=== PATIENT | female | born 1990 | race Caucasian/White ===

== ENCOUNTER 2017-01-24 08:13 | Emergency (ER) | payer SELFPAY ==
[~2017-01-24] VITALS: Ht 152.4 cm; Wt 60.0 kg
[~2017-01-24 08:13] MED LIST: RANI150 PO; ZOFR4TAB3 SL; ZYRT10TA12 PO
[2017-01-24 08:15] VITALS: BP 131/60; PULSE 60; RESP 16; TEMP 98.4; O2SAT 98
[2017-01-24] MEDS ORDERED: SODIUM CHLOR 0.9% 1000 ML INJ 1,000 ML IV SCH (08:33)
--- NOTE | 2017-01-24 08:37 | PD ---
HPI Chief Complaint: Flank/Kidney Pain Time Seen by Provider: 08:33 Travel History International Travel<30 days: No Contact w/Intl Traveler<30days: No Traveled to known affect area: No History of Present Illness HPI 26-year-old female with history of no significant past medical issues, presents to the ER today with bilateral flank and back pains that started on its own. She does not know injuries. She states is currently a 10 out of 10 starting last night. She has had some similar issues in the past although not quite as severe according to patient's . She denies any nausea, vomiting, urinary symptoms, fevers, incontinence, numbness or weakness in the legs, abdominal pains, or any other symptoms. She states that sometimes it hurts when she moves or takes too deep breath. Modifying Factors: None Associated Signs & Symptoms: Bilateral flank and back pain Risk Factors: None PFSH Past Medical History Medical History: Denies Significant Hx Asthma: Yes Autoimmune Disease: No Anxiety: No Depression: No Cardiovascular Problems: No Diminished Hearing: Yes (RIGHT EAR) Gastrointestinal Disorders: Yes Genitourinary: No Musculoskeletal: No Neurologic: No Psychiatric: No Respiratory: Yes (CHRONIC BRONCHITITS) Immunizations Current: Yes ?: Not LMP: 12/30 Menopausal: No : 0 Past Surgical History Surgical History: No Previous Surgery Other Surgery: No Social History Alcohol Use: No Tobacco Use: No Substance Use: No Allergies-Medications (Allergen,Severity, Reaction): Coded Allergies: No Known Allergies (Verified , 04/20/15) Reported Meds & Prescriptions Reported Meds & Active Scripts Active No Active Prescriptions or Reported Medications Review of Systems Except as stated in HPI: all other systems reviewed are Neg Physical Exam Narrative GENERAL: Well-developed young female patient currently in mild distress. Awake and oriented 3. SKIN: Focused skin assessment warm/dry. HEAD: Atraumatic. Normocephalic. EYES: Pupils equal and round. No scleral icterus. No injection or drainage. ENT: No nasal bleeding or discharge. Mucous membranes pink and moist. NECK: Trachea midline. No JVD. CARDIOVASCULAR: Regular rate and rhythm. No murmur appreciated. RESPIRATORY: No accessory muscle use. Clear to auscultation. Breath sounds equal bilaterally. GASTROINTESTINAL: Abdomen soft, non-tender, nondistended. Hepatic and splenic margins not palpable. BACK: No CVA tenderness. No rash. No point tenderness on palpation of the spine. Mild paraspinal tenderness around the upper lumbar region with no obvious fluctuance. MUSCULOSKELETAL: No obvious deformities. No clubbing. No cyanosis. No edema. NEUROLOGICAL: Awake and alert. No obvious cranial nerve deficits. Motor grossly within normal limits. Normal speech. PSYCHIATRIC: Appropriate mood and affect; insight and judgment normal. Data Data Last Documented VS Vital Signs Date Time Temp Pulse Resp B/P Pulse Ox O2 Delivery O2 Flow Rate FiO2 01/24/17 08:47 100 Room Air 01/24/17 08:26 16 01/24/17 08:15 98.4 60 131/60 Orders Complete Blood Count With Diff (01/24/17 08:33) Comprehensive Metabolic Panel (01/24/17 08:33) Lipase (01/24/17 08:33) Urinalysis - C+S If Indicated (01/24/17 08:33) Ct Abd/Pel W/O Iv Contrast (01/24/17 08:33) Iv Access Insert/Monitor (01/24/17 08:33) Ecg Monitoring (01/24/17 08:33) Oximetry (01/24/17 08:33) Sodium Chlor 0.9% 1000 Ml Inj (Ns 1000 M (01/24/17 08:33) Sodium Chloride 0.9% Flush (Ns Flush) (01/24/17 08:45) Ketorolac Inj (Toradol Inj) (01/24/17 08:45) Ed Urine Pregnancytest Poc (01/24/17 08:33) Ct Thor Spine W/O Contrast (01/24/17 08:33) Ct Lumb Spine W/O Contrast (01/24/17 08:33) Labs Laboratory Tests Test 01/24/17 08:45 White Blood Count 7.1 TH/MM3 Red Blood Count 4.95 MIL/MM3 Hemoglobin 14.5 GM/DL Hematocrit 42.6 % Mean Corpuscular Volume 86.1 FL Mean Corpuscular Hemoglobin 29.2 PG Mean Corpuscular Hemoglobin 33.9 % Concent Red Cell Distribution Width 13.0 % Platelet Count 232 TH/MM3 Mean Platelet Volume 8.0 FL Neutrophils (%) (Auto) 61.0 % Lymphocytes (%) (Auto) 27.3 % Monocytes (%) (Auto) 7.7 % Eosinophils (%) (Auto) 3.4 % Basophils (%) (Auto) 0.6 % Neutrophils # (Auto) 4.4 TH/MM3 Lymphocytes # (Auto) 1.9 TH/MM3 Monocytes # (Auto) 0.6 TH/MM3 Eosinophils # (Auto) 0.2 TH/MM3 Basophils # (Auto) 0.0 TH/MM3 CBC Comment DIFF FINAL Differential Comment Urine Color YELLOW Urine Turbidity HAZY Urine pH 5.5 Urine Specific [place] 1.027 Urine Protein TRACE mg/dL Urine Glucose (UA) NEG mg/dL Urine Ketones NEG mg/dL Urine Occult Blood SMALL Urine Nitrite NEG Urine Bilirubin NEG Urine Urobilinogen LESS THAN 2.0 MG/DL Urine Leukocyte Esterase SMALL Urine RBC 8 /hpf Urine WBC 5 /hpf Urine Squamous Epithelial 8 /hpf Cells Urine Bacteria OCC /hpf Urine Mucus FEW /lpf Microscopic Urinalysis Comment CULT NOT INDICATED Sodium Level 138 MEQ/L Potassium Level 3.6 MEQ/L Chloride Level 107 MEQ/L Carbon Dioxide Level 26.0 MEQ/L Anion Gap 5 MEQ/L Blood Urea Nitrogen 11 MG/DL Creatinine 0.78 MG/DL Estimat Glomerular Filtration 91 ML/MIN Rate Random Glucose 84 MG/DL Calcium Level 8.4 MG/DL Total Bilirubin 0.4 MG/DL Aspartate Amino Transf 16 U/L (AST/SGOT) Alanine Aminotransferase 24 U/L (ALT/SGPT) Alkaline Phosphatase 106 U/L Total Protein 7.4 GM/DL Albumin 3.5 GM/DL Lipase 94 U/L MDM Medical Decision Making Medical Screen Exam Complete: Yes Emergency Medical Condition: Yes Medical Record Reviewed: Yes Interpretation(s) Laboratory Tests Test 01/24/17 08:45 Urine Turbidity HAZY (CLEAR) Urine Occult Blood SMALL (NEG) Urine Leukocyte Esterase SMALL (NEG) Urine RBC 8 /hpf (0-3) Urine Bacteria OCC /hpf (NONE) Urine Mucus FEW /lpf (OCC) Calcium Level 8.4 MG/DL (8.5-10.1) Last 24 hours Impressions [address] Spine CT 01/24/17832 Signed Impressions: Service Date/Time: Tuesday, January 24, 2017 09:06 - CONCLUSION: Mild degenerative spondylosis at T8-9. No acute or significant abnormality. Asael Cheung MD Lumbar Spine CT 01/24/17832 Signed Impressions: Service Date/Time: Tuesday, January 24, 2017 09:06 - CONCLUSION: Normal examination. Asael Cheung MD Abdomen/Pelvis CT 01/24/17 0833 Signed Impressions: Service Date/Time: Tuesday, January 24, 2017 09:06 - CONCLUSION: No abnormality is identified to explain the left flank pain. No renal stones are identified. Zelalem Myers MD Differential Diagnosis Flank pains, back painmusculoskeletal versus renal colic versus pyelonephritis Narrative Course Patient has no focal neurological deficits. Patient does a lot of factory work , lifting, I suspect that she may have an underlying musculoskeletal back pain. She denies any illicit drug use. She does have some mild UTI which I plan to treat as well. I do not think that she has a pyelonephritis. She has no signs of kidney stones. At this point, my plan would be to release her with symptomatic relief or pain and have her go on light duty for a week. Return for any worsening in symptoms as needed. Follow-up with primary care physician. The plan was discussed with her and she states understanding. Diagnosis Primary Impression: Back pain Med/Other Pt SpecificInfo: Prescription(s) given Scripts Cyclobenzaprine (Flexeril)10 Mg Tab10 Mg PO TID #15 TAB Ref 0 Prov:Miguel Montoya MD 01/24/17 Ibuprofen (Motrin Ib)200 Mg [id number] Mg PO QID PRN (PAIN SCALE 1 TO 10) #20 Prov:Miguel Montoya MD 01/24/17 Disposition: 01 DISCHARGE HOME Condition: Stable Miguel Montoya MD Jan 24, 2017 08:37
[2017-01-24] MEDS ORDERED: SODIUM CHLORIDE 0.9% FLUSH 10 ML FLUSH IV FLUSH PRN (08:45)
[2017-01-24] MEDS ORDERED: KETOROLAC TROMETHAMINE 30 MG/ML (IVP) VIAL IVP ONE (08:45)
[2017-01-24 08:47] VITALS: O2SAT 100
[2017-01-24 08:56] LABS: AUTOMATED NEUTROPHIL # 4.4 TH/MM3 (1.8-7.7); BASOPHIL % 0.6 % (0.0-2.0); EOSINOPHIL # 0.2 TH/MM3 (0-0.4); EOSINOPHIL % 3.4 % (0.0-4.0); HEMATOCRIT 42.6 % (35.0-46.0); HEMO FLAGS DIFF FINAL; LYMPH % 27.3 % (9.0-44.0); LYMPHOCYTE # 1.9 TH/MM3 (1.0-4.8); MEAN CELL VOLUME 86.1 FL (80.0-100.0); MEAN CORPUSCULAR HEMOGLOBIN 29.2 PG (27.0-34.0); MEAN CORPUSCULAR HGB CONC 33.9 % (32.0-36.0); MONO % 7.7 % (0.0-8.0); PLATELET COUNT 232 TH/MM3 (150-450); RED BLOOD COUNT 4.95 MIL/MM3 (4.00-5.30); WHITE BLOOD COUNT 7.1 TH/MM3 (4.0-11.0)
[2017-01-24 09:00] LABS: BACTERIA, URINE OCC /hpf; BLOOD, URINE SMALL (NEG); COMMENT (UR) CULT NOT INDICATED; CULTURE IF INDICATED CULT NOT INDICATED; GLUCOSE,URINE NEG (NEG); KETONE, URINE NEG (NEG); MUCUS URINE FEW /lpf (OCC); NITRITE,URINE NEG (NEG); PH, URINE 5.5 (5.0-8.5); SQUAMOUS EPITHELIAL CELL URINE 8 /hpf (0-5); URINE COLOR YELLOW (YELLW/STRAW)
[2017-01-24 09:09] LABS: ANION GAP 5 MEQ/L (5-15); AST (GOT) 16 U/L (15-37); BLOOD UREA NITROGEN 11 MG/DL (7-18); CHLORIDE 107 MEQ/L (98-107); GLOMERULAR FILTRATION RATE 91 ML/MIN (>89); POTASSIUM 3.6 MEQ/L (3.5-5.1); SODIUM (NA) 138 MEQ/L (136-145)
[2017-01-24 09:10] LABS: ALT (GPT) 24 U/L (10-53)
[2017-01-24 09:12] LABS: ALKALINE PHOSPHATASE 106 U/L (45-117); TOTAL BILIRUBIN ADULT 0.4 MG/DL (0.2-1.0)
--- NOTE | 2017-01-24 09:44 | RADRPT ---
EXAM DATE/TIME: 01/24/2017 09:06 [facility] COMPARISON: No previous studies available for comparison. INDICATIONS : Left flank pain, short of breath ORAL CONTRAST: No oral contrast ingested. RADIATION DOSE: 15.74 CTDIvol (mGy) ; Combined studies MEDICAL HISTORY : Asthma SURGICAL HISTORY : None. ENCOUNTER: Initial ACUITY: 2 days PAIN SCALE: 6/10 LOCATION: Left flank TECHNIQUE: Volumetric scanning of the abdomen and pelvis was performed. Using automated exposure control and ad justment of the mA and/or kV according to patient size, radiation dose was kept as low as reasonably achievable to obtain optimal diagnostic quality images. DICOM format image data is available electro nically for review and comparison. FINDINGS: LOWER LUNGS: The visualized lower lungs are clear. LIVER: Homogeneous density without lesion. There is no dilation of the biliary tree. No calcified gallston es. SPLEEN: Normal size without lesion. PANCREAS: Within normal limits. KIDNEYS: Normal in size and shape. There is no mass, stone, or hydronephrosis. ADRENAL GLANDS: Within normal limits. VASCULAR: There is no aortic aneurysm. BOWEL/MESENTERY: The stomach, small bowel, and colon demonstrate no acute abnormality. There is no free intraperitone al air or fluid. Appendix is normal. ABDOMINAL WALL: Within normal limits. RETROPERITONEUM: There is no lymphadenopathy. BLADDER: No wall thickening or mass. REPRODUCTIVE: Within normal limits. INGUINAL: There is no lymphadenopathy or hernia. MUSCULOSKELETAL: No acute abnormality is identified. CONCLUSION: No abnormality is identified to explain the left flank pain. No renal stones are identified. Zelalem Myers MD on January 24, 2017 at 9:40 Board Certified Radiologist. This report was verified electronically.
--- NOTE | 2017-01-24 09:56 | RADRPT ---
EXAM DATE/TIME: 01/24/2017 09:06 [facility] COMPARISON: No previous studies available for comparison. INDICATIONS : Back pain for 2 days RADIATION DOSE: 15.74 CTDIvol (mGy) ; Combined studies MEDICAL HISTORY : Asthma SURGICAL HISTORY : None. ENCOUNTER: Initial ACUITY: 2 days PAIN SCALE: 7/10 LOCATION: Left upper back TECHNIQUE: Volumetric scanning of the thoracic spine was performed. Multiplanar reconstructions in the sagittal , coronal and oblique axial planes were performed. Using automated exposure control and adjustment o f the mA and/or kV according to patient size, radiation dose was kept as low as reasonably achievable to obtain optimal diagnostic quality images. DICOM format image data is available electronically f or review and comparison. FINDINGS: The vertebral bodies of the thoracic spine are in normal alignment without evidence of subluxation. Vertebral body height is maintained. No fractures are seen. T1-T2: Normal. T2-T3: The thecal sac has a normal diameter. No evidence of disc bulge or protrusion. T3-T4: The thecal sac has a normal diameter. No evidence of disc bulge or protrusion. T4-T5: The thecal sac has a normal diameter. No evidence of disc bulge or protrusion. T5-T6: The thecal sac has a normal diameter. No evidence of disc bulge or protrusion. T6-T7: The thecal sac has a normal diameter. No evidence of disc bulge or protrusion. T7-T8: The thecal sac has a normal diameter. No evidence of disc bulge or protrusion. T8-T9: The thecal sac has a normal diameter. Mild degenerative spondylosis is seen along the anterior disc margin. No evidence of disc bulge or protrusion. T9-T10: The thecal sac has a normal diameter. No evidence of disc bulge or protrusion. T10-T11: The thecal sac has a normal diameter. No evidence of disc bulge or protrusion. T11-T12: The thecal sac has a normal diameter. No evidence of disc bulge or protrusion. T12-L1: The thecal sac has a normal diameter. No evidence of disc bulge or protrusion. CONCLUSION: Mild degenerative spondylosis at T8-9. No acute or significant abnormality. Asael Cheung MD on January 24, 2017 at 9:52 Board Certified Radiologist. This report was verified electronically.
--- NOTE | 2017-01-24 09:58 | RADRPT ---
EXAM DATE/TIME: 01/24/2017 09:06 [facility] COMPARISON: No previous studies available for comparison. INDICATIONS : Left flank pain RADIATION DOSE: 15.71 CTDIvol (mGy) ; Combined studies MEDICAL HISTORY : Asthma SURGICAL HISTORY : None. ENCOUNTER: Initial ACUITY: 2 days PAIN SCALE: 6/10 LOCATION: Left flank TECHNIQUE: Volumetric scanning of the lumbar spine was performed. Multiplanar reconstructions in the sagittal, coronal and oblique axial planes were performed. Using automated exposure control and adjustment of the mA and/or kV according to patient size, radiation dose was kept as low as reasonably achievable t o obtain optimal diagnostic quality images. DICOM format image data is available electronically for review and comparison. FINDINGS: VERTEBRAE: Normal vertebral body height. ALIGNMENT: No evidence of subluxation. T12-L1: The thecal sac has a normal diameter. No evidence of disc bulge or protrusion. The neural foramina are patent bilaterally. L1-L2: The thecal sac has a normal diameter. No evidence of disc bulge or protrusion. The neural foramina are patent bilaterally. L2-L3: The thecal sac has a normal diameter. No evidence of disc bulge or protrusion. The neural foramina are patent bilaterally. L3-L4: The thecal sac has a normal diameter. No evidence of disc bulge or protrusion. The neural foramina are patent bilaterally. L4-L5: The thecal sac has a normal diameter. No evidence of disc bulge or protrusion. The neural foramina are patent bilaterally. L5-S1: The thecal sac has a normal diameter. No evidence of disc bulge or protrusion. The neural foramina are patent bilaterally. CONCLUSION: Normal examination. Asael Cheung MD on January 24, 2017 at 9:54 Board Certified Radiologist. This report was verified electronically.
[2017-01-24] MEDS ORDERED: CYCL1TAB29 PO (10:14)
[2017-01-24] MEDS ORDERED: IBUP-1129 PO (10:14)
== END 2017-01-24 12:10 | disposition home or self-care (01) ==
LOC: NEPC 08:13
DX: M54.9 Dorsalgia, unspecified (principal); N39.0 Urinary tract infection, site not specified; J45.909 Unspecified asthma, uncomplicated
CPT/HCPCS: 72128; 72131; 74176; 80053; 81001; 83690; 84703; 85025; 96374; 99285; J1885; J7030

== ENCOUNTER 2017-02-05 09:13 | Emergency (ER) | payer SELFPAY ==
[~2017-02-05] VITALS: Ht 152.4 cm; Wt 70.0 kg
[~2017-02-05 09:13] MED LIST changes: +CYCL1TAB29 PO; +IBUP-1129 PO; -RANI150 PO; -ZOFR4TAB3 SL; -ZYRT10TA12 PO
[2017-02-05 09:15] VITALS: BP 124/70; PULSE 86; RESP 20; TEMP 98.4; O2SAT 100
[2017-02-05] MEDS ORDERED: ORPHENADRINE INJ 60 MG/2 ML AMP IM ONE (10:45)
[2017-02-05] MEDS ORDERED: KETOROLAC TROMETHAMINE 60 MG/2 ML (IM) VIAL IM ONE (10:45)
[2017-02-05] MEDS ORDERED: MOME17I EACH NARE (10:56)
[2017-02-05] MEDS ORDERED: ALBUAER3 INH (10:56)
[2017-02-05] MEDS ORDERED: ROBA500T PO (10:56)
--- NOTE | 2017-02-05 10:58 | PD ---
HPI Chief Complaint: Cold / Flu Symptoms Time Seen by Provider: 10:46 Travel History International Travel<30 days: No Contact w/Intl Traveler<30days: No Traveled to known affect area: No History of Present Illness HPI 25-year-old female presents to the emergency Department with complaint of nasal congestion and sore throat 4-5 days. Denies ear pain. Denies lump in throat, difficulty swallowing, unusual drooling. Reports painful swallowing. Denies fever, vomiting. Denies chest pain, chest tightness, shortness of breath, abdominal pain. She also states that she was seen here about 2 weeks ago for low back pain and is continuing to have low back pain. She denies any recent injury. She said she was given Flexeril and ibuprofen which she has been taking for symptom management with no relief. She did go back to work the day after she was seen and has not rested. She was told at the visit that she had a urinary tract infection and she was never given antibiotics. She denies encopresis, incontinence, saddle anesthesias. Denies IV drug use or cancer. Denies dysuria, urgency, frequency. Denies paresthesias, loss of sensation, decreased range motion 20 strength to bilateral lower extremities. Denies difficulty with ambulation. He denies history of asthma and denies symptoms of exacerbation at this time. She is requesting a refill for an inhaler also. Symptoms are mild in severity. No known allergies. Has no medical complaints. No other modifying factors or associated signs and symptoms. PFSH Past Medical History Asthma: Yes Autoimmune Disease: No Anxiety: No Depression: No Cardiovascular Problems: No Diminished Hearing: Yes (RIGHT EAR) Gastrointestinal Disorders: Yes Genitourinary: No Musculoskeletal: No Neurologic: No Psychiatric: No Respiratory: Yes (CHRONIC BRONCHITITS) Immunizations Current: Yes LMP: 12/28/16 Menopausal: No : 0 Past Surgical History Other Surgery: No Social History Alcohol Use: No Tobacco Use: No Substance Use: No Allergies-Medications (Allergen,Severity, Reaction): Coded Allergies: No Known Allergies (Verified , 04/20/15) Reported Meds & Prescriptions Reported Meds & Active Scripts Active Ibuprofen 800 Mg Tab 800 Mg PO Q6HR PRN Keflex (Cephalexin) 500 Mg Cap 500 Mg PO Q12H 7 Days Proair Hfa 8.5 GM Inh (Albuterol Sulfate) 90 Mcg/Act Aer 2 Puff INH Q4-6H PRN 108 mcg/actuation Nasonex Nasal [place] Var[place] (Mometasone Furoate) 50 Mcg/Act Naspr 2 [place] EACH NARE DAILY PRN Robaxin (Methocarbamol) 500 Mg Tab 500 Mg PO QID PRN Review of Systems Except as stated in HPI: all other systems reviewed are Neg Physical Exam Narrative GENERAL: Well-nourished, well-developed female patient, in no acute distress; afebrile, nontoxic-appearing SKIN: Warm and dry. No rash. HEAD: Atraumatic. Normocephalic. EYES: Pupils equal and round. No scleral icterus. No injection or drainage. ENT: Mucosa pink and moist. Oropharynx with 2+ tonsillar edema and with erythema; no exudate. No uvular edema. No uvular, palatal, or tonsillar deviation. Airway patent. Voice is hoarse. EARS: Bilateral pinnae and external canals appear within normal limits. Bilateral tympanic membranes without erythema, dullness or perforation. NECK: Trachea midline. Anterior cervical lymphadenopathy and tenderness on palpation. CARDIOVASCULAR: Regular rate and rhythm. No murmur appreciated. RESPIRATORY: No accessory muscle use. Clear to auscultation. Breath sounds equal bilaterally. No retractions or tachypnea. GASTROINTESTINAL: Rounded. MUSCULOSKELETAL: Bilateral lower extremities supple and non-tense with 2+ pedal pulses and sensory intact; with full range of motion and 5/5 strength. 2 + DTRs bilaterally. Active dorsiflexion and extension of bilateral feet. Bilateral straight leg raise is negative for low back pain. Ambulatory in room with normal gait. Sitting up in bed at 90. No obvious deformities. No clubbing. No cyanosis. No edema. BACK: No midline point tenderness on palpation of the lumbar or thoracic spine. Tenderness on palpation of bilateral lumbar paraspinal muscle area. No obvious deformities. NEUROLOGICAL: Awake and alert. Oriented 3. No obvious cranial nerve deficits. Motor grossly within normal limits. Normal speech. Moves all extremities. 5/5 strength to all extremities. PSYCHIATRIC: Appropriate mood and affect; insight and judgment normal. Data Data Last Documented VS Vital Signs Date Time Temp Pulse Resp B/P (MAP) Pulse Ox O2 Delivery O2 Flow Rate FiO2 02/05/17 12:01 02/05/17 09:15 98.4 86 20 100 Room Air Orders Orders Orphenadrine Inj (Norflex Inj) (02/05/17 10:45) Ketorolac Inj (Toradol Inj) (02/05/17 10:45) Influenzae A/B Antigen (02/05/17 10:46) Group A Rapid Strep Screen (02/05/17 10:46) Strep Culture (Group A) (02/05/17 11:00) MDM Medical Decision Making Medical Screen Exam Complete: Yes Emergency Medical Condition: Yes Medical Record Reviewed: Yes Differential Diagnosis Low back strain, low back pain, strep pharyngitis, viral pharyngitis, influenza , viral illness Narrative Course 26-year-old female with multiple complaints. I reviewed the patient's record and she was seen on January 24 with complaint of back pain. She continues to have back pain at today's visit. On January 24 she had an unremarkable CT of the thoracic spine, lumbar CT, and abdomen/pelvis CT. She had a mild UTI which the provider commented on treating the patient with antibiotics, which were not prescribed. On January 24 CBC and CMP and lipase were unremarkable. The patient was prescribed Flexeril and ibuprofen which she has been taking and states no improvement in back pain. I will give patient prescription for Keflex for treatment of mild UTI on January 24. Patient has had symptoms of sore throat and cold and flu for 5 days. Influenza and rapid strep ordered. She is also requesting a medication refill on her albuterol inhaler. 1138: Positive for influenza. I will prescribe Tamiflu secondary to patient being sick for 4-5 days. Robaxin, Nasonex, pro-air inhaler prescribed for home. I will prescribe the patient some Keflex secondary to mild signs of infection in her urine at her January 24 visit and according to the providers note they mentioned antibiotic treatment at that time, and there was no prescription provided. Instructed patient to follow up with primary care provider. Patient verbalizes understanding and agreement with treatment plan. Patient is medically cleared and stable for discharge. Discussed reasons to return to the emergency department. Patient agrees with treatment plan. The patients vital signs are stable and the patient is stable for outpatient follow- up and treatment. Patient discharged home, stable and in no acute distress. Diagnosis Primary Impression: Influenza A Additional Impressions: Back pain Qualified Codes: M54.5 - Low back pain Medication refill Referrals: [facility] Primary Care Physician Patient Instructions: Acute Low Back Pain (ED), General Instructions, Influenza (ED) Departure Forms: Tests/Procedures, Work Release Enter return to work date: Feb 10, 2017 Additional Instructions: Take Antibiotics as prescribed and complete full course of antibiotics Throw away and change your toothbrush 24 hours after starting antibiotics Get plenty of sleep/rest Rest your voice Drink plenty of fluids to prevent dehydration Use warm saltwater gargles to soothe throat pain Use an air humidifier/turn off ceiling fans Use throat lozenges as needed for sore throat Use ibuprofen or acetaminophen as needed to relieve pain and fever Follow-up with your primary care provider within 2-4 days Return immediately to the emergency department with worsening of symptoms Tylenol or ibuprofen as directed and as needed for pain Robaxin as prescribed and as needed for muscle spasms Heating pad and/or ice to affected area to reduce pain Avoid aggravating activities; increase activity as tolerated Follow-up with primary care provider Return to emergency department immediately with worsening of symptoms Med/Other Pt SpecificInfo: Prescription(s) given Scripts Ibuprofen (Ibuprofen) 800 Mg Tab 800 MG PO Q6HR Y for PAIN, #20 TAB 0 Refills Prov: Imelda Franco 02/05/17 Cephalexin (Keflex) 500 Mg Cap 500 MG PO Q12H for Infection for 7 Days, CAP 0 Refills Prov: Imelda Franco 02/05/17 Albuterol 8.5 GM Inh (Proair Hfa 8.5 GM Inh) 90 Mcg/Act Aer 2 PUFF INH Q4-6H Y for SOB/WHEEZING, #1 INHALER 0 Refills 108 mcg/actuation Prov: Imelda Franco 02/05/17 Mometasone Nasal [place] Varina (Nasonex Nasal [place] Varina) 50 Mcg/Act Naspr 2 SPRAY EACH NARE DAILY Y for NASAL CONGESTION, #1 BOTTLE 0 Refills Prov: Imelda Franco 02/05/17 Methocarbamol (Robaxin) 500 Mg Tab 500 MG PO QID Y for MUSCLE SPASM, #30 TAB 0 Refills Prov: Imelda Franco 02/05/17 Disposition: 01 DISCHARGE HOME Condition: Stable Imelda Franco Feb 05, 2017 10:58
[2017-02-05] MEDS ORDERED: CEPH-460 PO (11:41)
[2017-02-05] MEDS ORDERED: IBUP800T23 PO (11:41)
== END 2017-02-05 12:02 | disposition home or self-care (01) ==
LOC: NEPK 09:13
DX: J09.X2 Influenza due to identified novel influenza A virus with other respiratory manifestations (principal); M54.5 Low back pain
CPT/HCPCS: 87081; 87804; 87880; 96372; 99284; J1885; J2360

== ENCOUNTER 2017-10-06 06:28 | Emergency (ER) | payer SELFPAY ==
[~2017-10-06 06:28] MED LIST changes: +ALBUAER3 INH; +CEPH-460 PO; -CYCL1TAB29 PO; -IBUP-1129 PO; +IBUP1TAB7 PO; +MOME17I EACH NARE; +ROBA500T PO
[2017-10-06 06:32] VITALS: BP 98/53; PULSE 72; RESP 15; TEMP 98.1; O2SAT 100
[2017-10-06] MEDS ORDERED: SODIUM CHLOR 0.9% 1000 ML INJ 1,000 ML IV SCH (06:55)
[2017-10-06] MEDS ORDERED: ONDANSETRON HCL 4 MG/2 ML VIAL IVP ONE (07:00)
[2017-10-06] MEDS ORDERED: MORPHINE SULFATE 4 MG/ML INJ IV PUSH ONE (07:00)
[2017-10-06] MEDS ORDERED: SODIUM CHLORIDE 0.9% FLUSH 10 ML FLUSH IV FLUSH PRN (07:00)
[2017-10-06 07:29] LABS: BASOPHIL % 0.5 % (0.0-2.0); EOSINOPHIL # 0.5 TH/MM3 (0-0.4); HEMATOCRIT 45.6 % (35.0-46.0); HEMOGLOBIN 15.4 GM/DL (11.6-15.3); LYMPH % 24.1 % (9.0-44.0); LYMPHOCYTE # 2.3 TH/MM3 (1.0-4.8); MEAN CELL VOLUME 86.4 FL (80.0-100.0); MEAN CORPUSCULAR HEMOGLOBIN 29.2 PG (27.0-34.0); MEAN CORPUSCULAR HGB CONC 33.8 % (32.0-36.0); MEAN PLATELET VOLUME 8.6 FL (7.0-11.0); MONO % 6.4 % (0.0-8.0); MONOCYTE # 0.6 TH/MM3 (0-0.9); PLATELET COUNT 237 TH/MM3 (150-450); RED BLOOD COUNT 5.28 MIL/MM3 (4.00-5.30); WHITE BLOOD COUNT 9.4 TH/MM3 (4.0-11.0)
[2017-10-06 07:45] LABS: ALBUMIN 3.9 GM/DL (3.4-5.0); AST (GOT) 20 U/L (15-37); BICARBONATE 23.7 MEQ/L (21.0-32.0); BLOOD UREA NITROGEN 11 MG/DL (7-18); CALCIUM 9.1 MG/DL (8.5-10.1); CHLORIDE 108 MEQ/L (98-107); CREATININE 0.93 MG/DL (0.50-1.00); GLOMERULAR FILTRATION RATE 73 ML/MIN (>89); GLUCOSE,RANDOM 83 MG/DL (74-106); SODIUM (NA) 140 MEQ/L (136-145)
[2017-10-06 07:46] LABS: ALT (GPT) 30 U/L (10-53)
[2017-10-06 07:48] LABS: ALKALINE PHOSPHATASE 95 U/L (45-117); TOTAL BILIRUBIN ADULT 0.5 MG/DL (0.2-1.0); TOTAL PROTEIN 8.2 GM/DL (6.4-8.2)
--- NOTE | 2017-10-06 07:56 | PD ---
HPI . Abdominal pain Chief Complaint: Abdominal Pain Time Seen by Provider: 06:50 Travel History International Travel<30 days: No Contact w/Intl Traveler<30days: No Traveled to known affect area: No History of Present Illness HPI Patient presents with a chief complaint of abdominal pain. Onset was 2-3 days ago. Location is upper abdomen. Pain waxes and wanes. It is exacerbated by eating. Severity is rated 8/10. Associated symptom includes vomiting. She states that she will vomit immediately after she starts eating. She denies any fever. She denies any or [employer]ANDFI[employer] ATTENDANT symptoms. PFSH Past Medical History Asthma: Yes Autoimmune Disease: No Anxiety: No Depression: No Cardiovascular Problems: No Diminished Hearing: Yes (RIGHT EAR) Gastrointestinal Disorders: Yes Genitourinary: No Musculoskeletal: No Neurologic: No Psychiatric: No Respiratory: Yes (CHRONIC BRONCHITITS, ASTHMA) Immunizations Current: Yes ?: Not LMP: 09/11/2017 Menopausal: No : 0 Past Surgical History Surgical History: No Previous Surgery Other Surgery: No Social History Alcohol Use: No Tobacco Use: No Substance Use: No Allergies-Medications (Allergen,Severity, Reaction): Coded Allergies: No Known Allergies (Verified Adverse Reaction, Unknown, 10/06/17) Reported Meds & Prescriptions Reported Meds & Active Scripts Active Review of Systems Except as stated in HPI: all other systems reviewed are Neg General / Constitutional: No: Fever, Chills Gastrointestinal: Positive: Nausea, Vomiting, Abdominal Pain, No: Diarrhea Genitourinary: No: Urgency, Frequency, Dysuria, Discharge, Vaginal Bleeding Physical Exam Narrative GENERAL: Awake and alert and in no acute distress. SKIN: warm/dry. Normal color. HEAD: Normocephalic. Atraumatic. EYES: Pupils equal and round. No scleral icterus. No injection or drainage. ENT: No nasal bleeding or discharge. Mucous membranes pink and moist. NECK: Trachea midline. Full range of motion without pain.. CARDIOVASCULAR: Regular rate and rhythm. RESPIRATORY: No accessory muscle use. Clear to auscultation. Breath sounds equal bilaterally. GASTROINTESTINAL: Abdomen soft. Mild right upper quadrant tenderness. Bowel sounds present. Nondistended. MUSCULOSKELETAL: No obvious deformities. NEUROLOGICAL: Awake and alert. No obvious cranial nerve deficits. Motor grossly within normal limits. Normal speech. PSYCHIATRIC: Appropriate mood and affect; insight and judgment normal. Data Data Last Documented VS Vital Signs Date Time Temp Pulse Resp B/P (MAP) Pulse Ox O2 Delivery O2 Flow Rate FiO2 10/06/17 06:32 98.1 72 15 98/53 (68) 100 Orders Orders Complete Blood Count With Diff (10/06/17 06:55) Comprehensive Metabolic Panel (10/06/17 06:55) Lipase (10/06/17 06:55) Ct Abd/Pel W Iv Contrast(Rout) (10/06/17 06:55) Iv Access Insert/Monitor (10/06/17 06:55) Morphine Inj (Morphine Inj) (10/06/17 07:00) Ondansetron Inj (Zofran Inj) (10/06/17 07:00) Sodium Chlor 0.9% 1000 Ml Inj (Ns 1000 M (10/06/17 06:55) Sodium Chloride 0.9% Flush (Ns Flush) (10/06/17 07:00) Ed Urine Pregnancytest Poc (10/06/17 06:55) Iohexol 350 Inj (Omnipaque 350 Inj) (10/06/17 08:19) Labs Laboratory Tests Test 10/06/17 07:06 White Blood Count 9.4 TH/MM3 Red Blood Count 5.28 MIL/MM3 Hemoglobin 15.4 GM/DL Hematocrit 45.6 % Mean Corpuscular Volume 86.4 FL Mean Corpuscular Hemoglobin 29.2 PG Mean Corpuscular Hemoglobin Concent 33.8 % Red Cell Distribution Width 13.0 % Platelet Count 237 TH/MM3 Mean Platelet Volume 8.6 FL Neutrophils (%) (Auto) 64.0 % Lymphocytes (%) (Auto) 24.1 % Monocytes (%) (Auto) 6.4 % Eosinophils (%) (Auto) 5.0 % Basophils (%) (Auto) 0.5 % Neutrophils # (Auto) 6.0 TH/MM3 Lymphocytes # (Auto) 2.3 TH/MM3 Monocytes # (Auto) 0.6 TH/MM3 Eosinophils # (Auto) 0.5 TH/MM3 Basophils # (Auto) 0.0 TH/MM3 CBC Comment DIFF FINAL Differential Comment Blood Urea Nitrogen 11 MG/DL Creatinine 0.93 MG/DL Random Glucose 83 MG/DL Total Protein 8.2 GM/DL Albumin 3.9 GM/DL Calcium Level 9.1 MG/DL Alkaline Phosphatase 95 U/L Aspartate Amino Transf (AST/SGOT) 20 U/L Alanine Aminotransferase (ALT/SGPT) 30 U/L Total Bilirubin 0.5 MG/DL Sodium Level 140 MEQ/L Potassium Level 3.8 MEQ/L Chloride Level 108 MEQ/L Carbon Dioxide Level 23.7 MEQ/L Anion Gap 8 MEQ/L Estimat Glomerular Filtration Rate 73 ML/MIN Lipase 104 U/L MDM Medical Decision Making Medical Screen Exam Complete: Yes Emergency Medical Condition: Yes Differential Diagnosis Differential diagnosis of abdominal pain includes but is not limited to gastritis, pancreatitis, hepatitis, gastroenteritis, constipation, urinary retention, peptic ulcer disease, diverticulitis or appendicitis Narrative Course Patient presents with upper abdominal pain associated with nausea and vomiting. Symptoms are immediately exacerbated by eating. She does have some mild right upper quadrant tenderness. CBC & BMP Diagram 10/06/17 07:06 Total Protein 8.2, Albumin 3.9, Calcium Level 9.1, Alkaline Phosphatase 95, Aspartate Amino Transf (AST/SGOT) 20, Alanine Aminotransferase (ALT/SGPT) 30, Total Bilirubin 0.5, lipase 104. Last Impressions Abdomen/Pelvis CT 10/06/17 0655 Signed Impressions: Service Date/Time: Friday, October 06, 2017 08:05 - CONCLUSION: 1. 2 cm left ovarian cyst. 2. Unremarkable bowel gas pattern with no evidence of obstruction or inflammatory change. Manjinder Montalvo MD No reversible etiology for her abdominal pain has been found. The history, exam, diagnostic testing, and current condition do not suggest any significant pathology to warrant further testing, continued ED treatment, admission, or surgical evaluation at this point. No EMC was found. The patient 's condition is stable and appropriate for discharge. Diagnosis Primary Impression: Abdominal pain Qualified Codes: R10.13 - Epigastric pain Additional Impression: Vomiting Qualified Codes: R11.2 - Nausea with vomiting, unspecified Patient Instructions: Abdominal Hysterectomy (DC), Acute Nausea and Vomiting ( DC), General Instructions Med/Other Pt SpecificInfo: Prescription(s) given Scripts Dicyclomine (Bentyl) 10 Mg Cap 20 MG PO QID for Bowel Management, #20 CAP 0 Refills Prov: Nuzhat Canales MD 10/06/17 Ondansetron (Zofran) 4 Mg Tab 4 MG PO Q6HR Y for NAUSEA OR VOMITING, #10 TAB 0 Refills Prov: Nuzhat Canales MD 10/06/17 Disposition: 01 DISCHARGE HOME Condition: Stable Nuzhat Canales MD Oct 06, 2017 07:56
[2017-10-06] MEDS ORDERED: IOHEXOL 350 MG/ML 10 ML VIAL (for RAD DIAG) IVCONTRAST ONE (08:19)
--- NOTE | 2017-10-06 09:14 | RADRPT ---
EXAM DATE/TIME: 10/06/2017 08:05 [facility] COMPARISON: No previous studies available for comparison. INDICATIONS : Abdominal pain, nausea, vomiting IV CONTRAST: 90 cc Omnipaque 350 (iohexol) IV ORAL CONTRAST: No oral contrast ingested. RADIATION DOSE: 7.04 CTDIvol (mGy) MEDICAL HISTORY : None SURGICAL HISTORY : None. ENCOUNTER: Initial ACUITY: 2 days PAIN SCALE: 8/10 LOCATION: Bilateral Abdomen TECHNIQUE: Volumetric scanning of the abdomen and pelvis was performed. Using automated exposure control and ad justment of the mA and/or kV according to patient size, radiation dose was kept as low as reasonably achievable to obtain optimal diagnostic quality images. DICOM format image data is available electro nically for review and comparison. FINDINGS: LOWER LUNGS: The visualized lower lungs are clear. LIVER: Homogeneous density without lesion. There is no dilation of the biliary tree. No calcified gallston es. SPLEEN: Normal size without lesion. PANCREAS: Within normal limits. KIDNEYS: Normal in size and shape. There is no mass, stone or hydronephrosis. ADRENAL GLANDS: Within normal limits. VASCULAR: There is no aortic aneurysm. BOWEL/MESENTERY: No oral contrast was given limiting the sensitivity of the exam. The stomach, small bowel, and colon demonstrate no acute abnormality. There is no free intraperitoneal air or fluid. ABDOMINAL WALL: Within normal limits. RETROPERITONEUM: There is no lymphadenopathy. BLADDER: No wall thickening or mass. REPRODUCTIVE: A cystic structure is present in the left ovary measuring up to 3 cm. The right ovary and uterus are unremarkable in appearance for patient this age. INGUINAL: There is no lymphadenopathy or hernia. MUSCULOSKELETAL: Within normal limits for patient age. CONCLUSION: 1. 2 cm left ovarian cyst. 2. Unremarkable bowel gas pattern with no evidence of obstruction or inflammatory change. Manjinder Montalvo MD on October 06, 2017 at 9:07 Board Certified Radiologist. This report was verified electronically.
[2017-10-06] MEDS ORDERED: DICY10 PO (09:25)
[2017-10-06] MEDS ORDERED: ZOFR4TAB PO (09:25)
== END 2017-10-06 09:43 | disposition home or self-care (01) ==
LOC: NEPC 06:28
DX: R10.13 Epigastric pain (principal); R11.2 Nausea with vomiting, unspecified; J45.909 Unspecified asthma, uncomplicated; N83.202 Unspecified ovarian cyst, left side
CPT/HCPCS: 74177; 80053; 83690; 84703; 85025; 96374; 96375; 99284; J2270; J2405; J7030; Q9967